=== PATIENT | male | born 1935 | race Caucasian/White ===

== ENCOUNTER 2016-11-09 08:21 | Day surgery (SDC) | payer MEDICARE, BC ==
[~2016-11-09] VITALS: Ht 175.3 cm; Wt 81.6 kg
--- NOTE | ~2016-11-09 | EGD ---
EGD REPORT [facility] [address] [address] NAME: ZAHRA MONTEMAYOR : 37 STATUS : REG [facility]#: [id number] AGE: 81 ADM/REG DATE : 11/09/16 MR#: [id number] REPORT SERV DATE: 11/09/16 DICTATED BY: DATE: REPORT STATUS : Draft [facility]ANS[facility]IBED BY: [facility] DATE: 11/09/16 [facility] Center Patient Name: Zahra Montemayor Date of : 1935 Attending MD: LAZ CASTANEDA MD Procedure Date No Time: 11/09/2016 Procedure: Upper GI endoscopy Indications: Dyspepsia, Dysphagia Referring MD: JOSE MARIA MATTHEWS MD Medicines: Propofol per Anesthesia Complications: No immediate complications. Procedure: Pre-Anesthesia Assessment: - ASA Grade Assessment: III - A patient with severe systemic disease. After obtaining informed consent, the endoscope was passed under direct vision. Throughout the procedure, the patient's blood pressure, pulse, and oxygen saturations were monitored continuously. The GIF [id number] was introduced through the mouth, and advanced to the second part of duodenum. The upper GI endoscopy was accomplished without difficulty. The patient tolerated the procedure well. Findings: A large hiatus hernia was present. This hernia measured from 35 cm to 42 cm. at the 42 cm level the hiatal hernia was slightly twisted and much time was spent in trying to pass through this tortuous area in order to reach the antrum. Eventually the scope was able to untwist the hiatal hernia and get into the body and then into the antrum of the stomach. Diffuse moderate inflammation characterized by erosions, erythema and friability was found in the stomach. The examined duodenum was normal. Impression: - Hiatus hernia. - Chronic gastritis. - Normal examined duodenum. Recommendation: - Patient has a contact number available for emergencies. The signs and symptoms of potential delayed complications were discussed with the patient. Return to normal activities tomorrow. Written discharge instructions were provided to the patient. - Regular diet. - Patient has a contact number available for EGD REPORT [address] [address] NAME: ZAHRA MONTEMAYOR : 37 STATUS : REG [facility]#: [id number] AGE: 81 ADM/REG DATE : 11/09/16 MR#: [id number] REPORT SERV DATE: 11/09/16 DICTATED BY: DATE: REPORT STATUS : Draft TRANSCRIBED BY: [employer] DATE: 11/09/16 emergencies. The signs and symptoms of potential delayed complications were discussed with the patient. Return to normal activities tomorrow. Written discharge instructions were provided to the patient. - Continue present medications. Procedure Code(s): --- Professional --- 18375, Esophagogastroduodenoscopy, flexible, transoral; diagnostic, including collection of specimen(s) by brushing or washing, when performed (separate procedure) Diagnosis Code(s): --- Professional --- K44.9, Diaphragmatic hernia without obstruction or gangrene K29.50, Unspecified chronic gastritis without bleeding K30, Functional dyspepsia R13.10, Dysphagia, unspecified CPT copyright 2013 [employer]. All rights reserved. The codes documented in this report are preliminary and upon bologna maker review may be revised to meet current compliance requirements. Laz Castaneda MD LAZ CASTANEDA MD 11/09/2016 9:24 AM This report has been signed electronically. Number of Addenda: 0 Note Initiated On: 11/09/2016 9:08 AM Scope Withdrawal Time 0 hours 0 minutes 0 seconds [id number] [place] [id number]
[~2016-11-09 08:21] MED LIST: ALLEGRA180 PO; BREO ELLIPTA 21 EACH INH; CEFT5 PO; COMBIVENT RESPIM4 GM INH; COZ25 PO; FISH-EPA1000 MG PO; FLOMAX4 PO; LIPITOR10 PO; PRILOSEC40 MG PO; PRIN2.5 PO; PROSCAR5 PO; SAW PALMETT2 PO; VIAGRA100 MG PO; VITAMIN D1000 UNI1 PO; XANAX1 MG PO
== END 2016-11-09 23:59 | disposition home or self-care (01) ==
LOC: DMU 08:21
PROVIDERS: Internal Medicine Gastroenterology
PROC: 0DJ08ZZ Inspection of Upper Intestinal Tract, Via Natural or Artificial Opening Endoscopic (ICD-10-PCS; principal; 2016-11-09 10:00)
DX: K44.9 Diaphragmatic hernia without obstruction or gangrene (principal); K29.50 Unspecified chronic gastritis without bleeding; I10 Essential (primary) hypertension; E78.00 Pure hypercholesterolemia, unspecified; K21.9 Gastro-esophageal reflux disease without esophagitis; Z88.8 Allergy status to other drugs, medicaments and biological substances; Z87.891 Personal history of nicotine dependence; Z98.52 Vasectomy status; Z98.41 Cataract extraction status, right eye; Z98.42 Cataract extraction status, left eye; Z96.1 Presence of intraocular lens; Z90.89 Acquired absence of other organs; Z98.890 Other specified postprocedural states; Z79.899 Other long term (current) drug therapy